=== PATIENT | female | born 1965 | race Caucasian/White ===

== ENCOUNTER → 2020-01-23 | Outpatient (CLI) | payer SELFPAY | LOC: M LABSMTC 18:16 | PROVIDERS: ATTEND Pediatrics | DX: Z11.59 Encounter for screening for other viral diseases (principal) ==

== ENCOUNTER → 2020-03-15 | Outpatient (CLI) | payer SELFPAY | LOC: M LABSMTC 14:00 | PROVIDERS: ATTEND Pediatrics | DX: Z20.822 Contact with and (suspected) exposure to COVID-19 (principal) ==

== ENCOUNTER → 2020-06-26 | Outpatient (REF) | payer OTHER ==
[2020-06-26 12:54] LABS: BASO % 0.6 % (0.0-1.0); HEMATOCRIT 42.9 % (36.0-47.0); HEMOGLOBIN 13.6 g/dl (12.0-15.5); LYMPH # 1.9 10^3/uL (1.5-5.0); LYMPH % 38.4 % (24.0-44.0); MEAN CORPUSCULAR HEMOGLOBIN 29.6 pg (27.0-33.0); MEAN CORPUSCULAR HGB CONC 31.7 g/dl (32.0-36.5); MEAN CORPUSCULAR VOLUME 93.5 fl (80.0-96.0); MONO # 0.4 10^3/uL (0.0-0.8); MONO % 8.4 % (2.0-8.0); NEUTROPHILS # 2.6 10^3/uL (1.5-8.5); NEUTROPHILS % 52.4 % (36.0-66.0); RED BLOOD COUNT 4.59 10^6/uL (4.00-5.40); WHITE BLOOD COUNT 4.9 10^3/uL (4.0-10.0)
[2020-06-26 13:32] LABS: ALBUMIN 3.8 GM/DL (3.2-5.2); ALT/SGPT 15 U/L (12-78); BILIRUBIN,TOTAL 0.4 MG/DL (0.2-1.0); BLOOD UREA NITROGEN 17 MG/DL (7-18); CALCIUM LEVEL 9.7 MG/DL (8.5-10.1); CARBON DIOXIDE LEVEL 30 MEQ/L (21-32); CHLORIDE LEVEL 107 MEQ/L (98-107); CHOLESTEROL LEVEL 246 MG/DL (<200); CHOLESTEROL RISK RATIO 4.472 (<5); CREATININE FOR GFR 0.72 MG/DL (0.55-1.30); FOLATE > 24.0 NG/ML; GLOMERULAR FILTRATION RATE > 60.0 (>51); GLUCOSE, FASTING 85 MG/DL (70-100); HDL CHOLESTEROL 55 MG/DL (>40); IRON (FE) 87 UG/DL (50-170); LDL CHOLESTEROL 155 MG/DL (<100); NON-HDL-C 191 MG/DL; PERCENT SATURATION 33.3 % (13.2-45.0); POTASSIUM SERUM 5.3 MEQ/L (3.5-5.1); SODIUM LEVEL 141 MEQ/L (136-145); THYROID STIMULATING HORMONE 0.645 uIU/ML (0.358-3.740); TOTAL 25(OH) VITAMIN D 27.7 NG/ML (30.0-100.0); TOTAL IRON BINDING CAPACITY 261 UG/DL (250-450); TOTAL PROTEIN 7.6 GM/DL (6.4-8.2); TRIGLYCERIDES LEVEL 181 MG/DL (<150); VITAMIN B12 LEVEL 1001 PG/ML
== END ==
LOC: M LAB REF 12:16
PROVIDERS: ATTEND Pediatrics
DX: Z98.84 Bariatric surgery status (principal); Z13.220 Encounter for screening for lipoid disorders

== ENCOUNTER → 2020-08-16 | Outpatient (CLI) | payer OTHER ==
--- NOTE | 2020-08-16 09:56 | DEXAMM ---
INDICATION: Z13.820 SCREENING FOR OSTEOPOROSIS. COMPARISON: April 12, 2015.. TECHNIQUE: Bone density was measured using dual-energy x-ray absorptionmetry (DEXA). FINDINGS: AP SPINE L1-L4 BMD 1.142 g/cm2 Young Adult T-Score -0.4 Age Matched Z-Score 0.4. LT FEMUR, TOTAL BMD 0.884 g/cm2 Young Adult T-Score -1.0 Age Matched Z-Score -0.3. LT NECK BMD 0.885 g/cm2 Young Adult T-Score -1.1 Age Matched Z-Score -0.1. RT FEMUR, TOTAL BMD 0.875 g/cm2 Young Adult T-Score -1.1 Age Matched Z-Score -0.4. RT NECK BMD 0.882 g/cm2 Young Adult T-Score -1.1 Age Matched Z-Score -0.1. IMPRESSION: There is normal bone density of the spine. There is low bone density of the left hip. There is low bone density of the right hip. The density of the spine has increased 13.9% since the initial exam on April 12, 2015. The density of the left hip has decreased 7.6% since initial exam on April 12, 2015. FOLLOW-UP: Recommendation for the next bone density exam: 2 years. <Electronically signed by Shan Coleman > 08/16/20 [id number]
== END ==
LOC: M WHC 07:18
PROVIDERS: ATTEND Pediatrics
DX: Z12.31 Encounter for screening mammogram for malignant neoplasm of breast (principal); M85.852 Other specified disorders of bone density and structure, left thigh; M85.851 Other specified disorders of bone density and structure, right thigh

== ENCOUNTER → 2020-08-29 | Outpatient (CLI) | payer OTHER ==
--- NOTE | 2020-08-29 15:37 | REP ---
INDICATION: SWELLING, MASS OF CHEST WALL. COMPARISON: None. TECHNIQUE: Ultrasonography over a palpable left chest wall lump was obtained FINDINGS: There are no cystic or solid masses. IMPRESSION: No abnormalities noted. <Electronically signed by Preet Vidal > 08/29/20 [id number]
== END ==
LOC: M RAD 14:53
PROVIDERS: ATTEND Pediatrics
DX: R22.2 Localized swelling, mass and lump, trunk (principal)

== ENCOUNTER → 2020-09-13 | Outpatient (CLI) | payer OTHER ==
--- NOTE | 2020-09-13 09:11 | REPMRS ---
Patient History The patient states she had a clinical breast exam in August 2020. Family history of breast cancer at age 49 in mother, unknown cancer in maternal grandmother. Patient was scheduled for a screening mammo 08/16/20 but found a lump the day before, about 9 o'clock close to sternum on right breast. Rescheduled for today as diagnostic. Had U/S of area 08/29/20 that was negative. Patient no longer feels the lump. Patient signed the MRS sheet 1st covid vaccine beginning of Feb-left arm-Moderna 2nd covid vaccine 03/21/20-left arm Out of state priors in PACS Patient Identification Verified Diagnostic Bilateral Mammo: September 13, 2020 - Exam #: [id number] Bilateral CC and MLO view(s) were taken. Technologist: Audrey Mcleod, Technologist Prior study comparison: November 10, 2018, bilateral digital mammo screening bilat. October 08, 2017, bilateral digital mammo screening bilat. July 08, 2016, bilateral digital mammo screening bilat. FINDINGS: The breast tissue is almost entirely fat. The Vol[employer] volumetric breast density category is: A. There has been no change in the appearance of the mammogram from the prior studies. There is no interval development of dominant mass, architectural distortion, or grouped microcalcification typical of malignancy. 3-D tomosynthesis shows no additional findings. Assessment: BI-RADS/ACR category 1 mammogram. Negative Mammogram. Recommendation Routine screening mammogram of both breasts in 1 year (for women over age 40). This patient's [facility] Lifetime Breast Cancer RIsk is estimated at 17.6 %. This mammogram was interpreted with the aid of an FDA-approved computer-aided dectection system. Electronically Signed By: Shan Coleman MD 09/13/20 [id number]
== END ==
LOC: M WHC 08:09
PROVIDERS: ATTEND Pediatrics
DX: N63.15 Unspecified lump in the right breast, overlapping quadrants (principal); Z80.3 Family history of malignant neoplasm of breast
CPT/HCPCS: 77066; G0279

== ENCOUNTER 2020-11-22 03:52 | Emergency (ER) | payer OTHER ==
[~2020-11-22] VITALS: Ht 170.2 cm; Wt 91.8 kg
[2020-11-22] MEDS ORDERED: ATOR1TAB21 PO (04:05)
--- NOTE | 2020-11-22 07:12 | REPVR ---
PROCEDURE INFORMATION: Exam: CT Abdomen And Pelvis Without Contrast Exam date and time: 11/22/2020 4:39 AM Age: 54 years old Clinical indication: Abdominal pain; Flank; Right; Additional info: Left flank pain TECHNIQUE: Imaging protocol: Computed tomography of the abdomen and pelvis without contrast. Radiation optimization: All CT scans at this facility use at least one of these dose optimization techniques: automated exposure control; mA and/or kV adjustment per patient size (includes targeted exams where dose is matched to clinical indication); or iterative reconstruction. COMPARISON: US Chest echo B 08/29/2020 3:12 PM FINDINGS: Mediastinal space: There is a small sliding hiatal hernia. Liver: Normal. No mass. Gallbladder and bile ducts: The patient is status post cholecystectomy. Pancreas: Normal. No ductal dilation. Spleen: Normal. No splenomegaly. Adrenal glands: Normal. No mass. Kidneys and ureters: There is 5 mm right UVJ obstructing stone with moderate proximal hydronephrosis with perinephric and periureteral edema. There are small right lower renal pole stone measuring 3 mm. Stomach and bowel: The patient is status post gastric sleeve surgery with grossly intact suture line. There is mild sigmoid diverticulosis. Appendix: No evidence of appendicitis. Intraperitoneal space: Unremarkable. No free air. No significant fluid collection. Vasculature: Unremarkable. No abdominal aortic aneurysm. Lymph nodes: Unremarkable. No enlarged lymph nodes. Urinary bladder: Unremarkable as visualized. Reproductive: Unremarkable as visualized. Bones/joints: There is lower lumbar spine facet arthrosis. There is L5 S1 disc degenerative changes. 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 Soft tissues: Unremarkable. IMPRESSION: 1. 5 mm right UVJ obstructing stone with moderate proximal hydronephrosis. 2. Bilateral nephrolithiasis. 3. Mild sigmoid colon diverticulosis. 4. Small sliding hiatal hernia. Electronically signed by: Lalo Dubon On 11/22/2020 07:11:37 AM
[2020-11-22 07:39] LABS: BASO % 0.2 % (0.0-1.0); HEMATOCRIT 43.7 % (36.0-47.0); HEMOGLOBIN 14.4 g/dl (12.0-15.5); LYMPH # 1.5 10^3/uL (1.5-5.0); LYMPH % 18.9 % (24.0-44.0); MEAN CORPUSCULAR HEMOGLOBIN 29.9 pg (27.0-33.0); MEAN CORPUSCULAR VOLUME 90.9 fl (80.0-96.0); MONO # 0.5 10^3/uL (0.0-0.8); MONO % 6.2 % (2.0-8.0); NEUTROPHILS % 74.5 % (36.0-66.0); PLATELET COUNT, AUTOMATED 217 10^3/uL (150-450); RED BLOOD COUNT 4.81 10^6/uL (4.00-5.40)
[2020-11-22 08:00] VITALS: BP 126/84
[2020-11-22] MEDS ORDERED: ONDA4TAB6 PO (08:06)
[2020-11-22] MEDS ORDERED: KETO10TAB PO (08:06)
== END 2020-11-22 08:14 | disposition home or self-care (01) ==
LOC: M ED 03:52
DX: N20.1 Calculus of ureter (principal); Z79.899 Other long term (current) drug therapy; Z87.440 Personal history of urinary (tract) infections

== ENCOUNTER → 2020-11-29 | Outpatient (REF) | payer OTHER ==
[~2020-11-29] MED LIST: ATOR1TAB21 PO; KETO10TAB PO; ONDA4TAB6 PO
== END ==
LOC: M LAB REF 16:26
PROVIDERS: ATTEND Pediatrics
DX: N20.0 Calculus of kidney (principal)

== ENCOUNTER → 2021-04-26 | Outpatient (CLI) | payer OTHER | LOC: M RAD 10:53 | PROVIDERS: ATTEND Nurse Practitioner Women's Health | DX: N20.0 Calculus of kidney (principal) ==

== ENCOUNTER → 2021-12-03 | Outpatient (CLI) | payer OTHER ==
[~2021-12-03] MED LIST changes: +ALLO100T PO; +METF750T36 PO; +PANT40TA29 PO
== END ==
LOC: M LABSMTC 09:11
PROVIDERS: ATTEND Anesthesiology
DX: Z01.812 Encounter for preprocedural laboratory examination (principal); Z11.52 Encounter for screening for COVID-19

== ENCOUNTER 2021-12-08 08:28 | Day surgery (SDC) | payer OTHER ==
[~2021-12-08] VITALS: Ht 170.2 cm; Wt 95.7 kg
[~2021-12-08 08:28] MED LIST changes: +NS 1,000 ML IV ONE
[2021-12-08] MEDS ORDERED: LIDOCAINE 2% 100MG/5ML SDV (FOR ANES.) As Ordered ONE (09:03)
[2021-12-08] MEDS ORDERED: propofoL 200 MG/20 ML VIAL As Ordered ONE (09:03)
[2021-12-08] MEDS ORDERED: fentaNYL 100 MCG/2 ML INJECTION As Ordered ONE (09:04)
[2021-12-08 10:00] VITALS: BP 160/78
== END 2021-12-08 10:09 | disposition home or self-care (01) ==
LOC: M OPP 08:28
PROVIDERS: ATTEND Internal Medicine Gastroenterology
DX: Z86.010 Personal history of colon polyps (principal); K64.0 First degree hemorrhoids; R68.81 Early satiety; Z98.84 Bariatric surgery status; Z79.02 Long term (current) use of antithrombotics/antiplatelets; Z79.1 Long term (current) use of non-steroidal anti-inflammatories (NSAID); Z79.84 Long term (current) use of oral hypoglycemic drugs; Z79.899 Other long term (current) drug therapy; Z88.8 Allergy status to other drugs, medicaments and biological substances; Z91.040 Latex allergy status; Z87.39 Personal history of other diseases of the musculoskeletal system and connective tissue
CPT/HCPCS: 43239; 45378; 88305; J3010

== ENCOUNTER → 2022-02-18 | Outpatient (REF) | payer OTHER ==
[~2022-02-18] MED LIST changes: -NS 1,000 ML IV ONE; +TRUL10IN SC
[2022-02-18 13:26] LABS: HEMOGLOBIN A1c 5.2 % (4.0-6.0)
[2022-02-18 13:36] LABS: URIC ACID 6.1 MG/DL (3.1-7.8)
[2022-02-18 13:39] LABS: BLOOD UREA NITROGEN 14 MG/DL (9-23); CALCIUM LEVEL 9.5 MG/DL (8.5-10.1); CARBON DIOXIDE LEVEL 30 MMOL/L (20-31); CHLORIDE LEVEL 105 MMOL/L (98-107); CHOLESTEROL LEVEL 130 MG/DL (<200); CHOLESTEROL RISK RATIO 2.74 (<5); CREATININE FOR GFR 0.77 MG/DL (0.55-1.30); GLOMERULAR FILTRATION RATE > 60.0 (>51); GLUCOSE, FASTING 84 MG/DL (60-100); HDL CHOLESTEROL 47.4 MG/DL (>40); LDL CHOLESTEROL 64.4 MG/DL (<100); NON-HDL-C 83 MG/DL; POTASSIUM SERUM 5.2 MMOL/L (3.5-5.1); SODIUM LEVEL 143 MMOL/L (136-145); TRIGLYCERIDES LEVEL 91 MG/DL (<150)
== END ==
LOC: M LAB REF 12:37
PROVIDERS: ATTEND Pediatrics
DX: E78.5 Hyperlipidemia, unspecified (principal); R73.03 Prediabetes; E79.0 Hyperuricemia without signs of inflammatory arthritis and tophaceous disease

== ENCOUNTER → 2022-02-27 | Outpatient (CLI) | payer OTHER ==
[2022-02-27 07:47] LABS: BASO % 0.5 % (0.0-1.0); EOS # 0.1 10^3/uL (0.0-0.5); EOS % 1.7 % (0.0-3.0); HEMOGLOBIN 12.9 g/dl (12.0-15.5); LYMPH # 2.4 10^3/uL (1.5-5.0); LYMPH % 40.4 % (24.0-44.0); MEAN CORPUSCULAR HEMOGLOBIN 30.2 pg (27.0-33.0); MEAN CORPUSCULAR HGB CONC 33.1 g/dl (32.0-36.5); MEAN CORPUSCULAR VOLUME 91.3 fl (80.0-96.0); MONO # 0.4 10^3/uL (0.0-0.8); MONO % 7.2 % (2.0-8.0); PLATELET COUNT, AUTOMATED 187 10^3/uL (150-450); RED BLOOD COUNT 4.27 10^6/uL (4.00-5.40)
[2022-02-27 08:07] LABS: ALBUMIN 3.6 G/DL (3.2-5.2); ALKALINE PHOSPHATASE 119 U/L (46-116); ALT/SGPT 12 U/L (7.0-40); AST/SGOT 20 U/L (<34); BILIRUBIN,TOTAL 0.5 MG/DL (0.3-1.2); BLOOD UREA NITROGEN 13 MG/DL (9-23); CALCIUM LEVEL 9.4 MG/DL (8.5-10.1); CARBON DIOXIDE LEVEL 30 MMOL/L (20-31); CHLORIDE LEVEL 107 MMOL/L (98-107); CREATININE FOR GFR 0.73 MG/DL (0.55-1.30); GLOMERULAR FILTRATION RATE > 60.0 (>51); GLUCOSE, FASTING 87 MG/DL (60-100); POTASSIUM SERUM 4.7 MMOL/L (3.5-5.1); SODIUM LEVEL 142 MMOL/L (136-145); TOTAL PROTEIN 6.5 G/DL (5.7-8.2)
== END ==
LOC: M EKG 06:56
PROVIDERS: ATTEND Podiatrist
DX: M20.12 Hallux valgus (acquired), left foot (principal); M79.672 Pain in left foot

== ENCOUNTER → 2022-03-02 | Outpatient (CLI) | payer OTHER | LOC: M LABSMTC 09:14 | PROVIDERS: ATTEND Anesthesiology | DX: Z01.812 Encounter for preprocedural laboratory examination (principal); Z11.52 Encounter for screening for COVID-19 ==

== ENCOUNTER 2022-03-06 07:32 | Day surgery (SDC) | payer OTHER ==
[~2022-03-06] VITALS: Ht 170.2 cm; Wt 93.0 kg
[~2022-03-06 07:32] MED LIST changes: +ceFAZolin SOD 2 GM in IV 1 EA IV ONE
[2022-03-06] MEDS ORDERED: LR 1,000 ML IV SCH (08:00)
[2022-03-06] MEDS ORDERED: MIDAZOLAM INJ 2MG/2ML VIAL As Ordered ONE (08:08)
[2022-03-06] MEDS ORDERED: fentaNYL 100 MCG/2 ML INJECTION As Ordered ONE (08:08)
[2022-03-06] MEDS ORDERED: propofoL 200 MG/20 ML VIAL As Ordered ONE (08:08)
[2022-03-06] MEDS ORDERED: KETOROLAC 60MG 2ML VIAL As Ordered ONE (08:08)
[2022-03-06] MEDS ORDERED: LIDOCAINE 2% 100MG/5ML SDV (FOR ANES.) As Ordered ONE (08:08)
[2022-03-06] MEDS ORDERED: GENTAMICIN SULF 80MG/2ML VIAL As Ordered ONE (09:35)
[2022-03-06] MEDS ORDERED: BUPIVACAINE HCL 0.5% 30ML VIAL As Ordered ONE (09:36)
[2022-03-06] MEDS ORDERED: LIDOCAINE 2% MDV 20ML VIAL As Ordered ONE (09:36)
[2022-03-06] MEDS ORDERED: ONDANSETRON 4MG 2ML VIAL As Ordered ONE (09:52)
[2022-03-06 10:50] VITALS: BP 147/79
== END 2022-03-06 10:55 | disposition home or self-care (01) ==
LOC: M SDC 07:32
PROVIDERS: ATTEND Podiatrist
DX: M20.12 Hallux valgus (acquired), left foot (principal); M21.6X2 Other acquired deformities of left foot; E78.5 Hyperlipidemia, unspecified; R73.03 Prediabetes; K21.9 Gastro-esophageal reflux disease without esophagitis; M1A.0720 Idiopathic chronic gout, left ankle and foot, without tophus (tophi); M1A.0710 Idiopathic chronic gout, right ankle and foot, without tophus (tophi); Z91.040 Latex allergy status; Z88.8 Allergy status to other drugs, medicaments and biological substances; Z79.899 Other long term (current) drug therapy; Z79.84 Long term (current) use of oral hypoglycemic drugs
CPT/HCPCS: 28296; 73630; 88300; C1713; J1100; J2405

== ENCOUNTER → 2022-10-09 | Outpatient (REF) | payer OTHER, BC ==
[~2022-10-09] MED LIST changes: -ceFAZolin SOD 2 GM in IV 1 EA IV ONE
[2022-10-09 18:16] LABS: BASO % 0.6 % (0.0-1.0); EOS % 0.2 % (0.0-3.0); HEMATOCRIT 40.9 % (36.0-47.0); HEMOGLOBIN 13.4 g/dl (12.0-15.5); LYMPH # 2.6 10^3/uL (1.5-5.0); LYMPH % 41.1 % (24.0-44.0); MEAN CORPUSCULAR HEMOGLOBIN 30.2 pg (27.0-33.0); MEAN CORPUSCULAR HGB CONC 32.8 g/dl (32.0-36.5); MEAN CORPUSCULAR VOLUME 92.1 fl (80.0-96.0); MONO # 0.6 10^3/uL (0.0-0.8); MONO % 9.5 % (2.0-8.0); NEUTROPHILS % 48.3 % (36.0-66.0); RED BLOOD COUNT 4.44 10^6/uL (4.00-5.40); WHITE BLOOD COUNT 6.2 10^3/uL (4.0-10.0)
[2022-10-09 18:30] LABS: URIC ACID 5.2 MG/DL (3.1-7.8)
[2022-10-09 18:33] LABS: PERCENT SATURATION 9.3 % (13.2-45.0)
[2022-10-09 18:35] LABS: THYROID STIMULATING HORMONE 0.648 uIU/ML (0.55-4.78)
[2022-10-09 18:36] LABS: FOLATE 18.8 NG/ML (>5.4)
== END ==
LOC: M LAB REF 17:46
PROVIDERS: ATTEND Pediatrics
DX: R73.03 Prediabetes (principal); Z87.39 Personal history of other diseases of the musculoskeletal system and connective tissue; M85.89 Other specified disorders of bone density and structure, multiple sites; Z98.84 Bariatric surgery status

== ENCOUNTER → 2022-10-20 | Outpatient (CLI) | payer BC, SELFPAY | LOC: M WHC 07:16 | PROVIDERS: ATTEND Pediatrics | DX: M81.0 Age-related osteoporosis without current pathological fracture (principal) ==

== ENCOUNTER → 2023-02-01 | Outpatient (REF) | payer BC, OTHER ==
[2023-02-01 18:01] LABS: HEMOGLOBIN A1c 5.6 % (4.0-6.0)
[2023-02-01 18:07] LABS: CHOLESTEROL RISK RATIO 2.48 (<5); HDL CHOLESTEROL 65.3 MG/DL (>40); LDL CHOLESTEROL 82.5 MG/DL (<100); NON-HDL-C 96.7 MG/DL
[2023-02-01 18:09] LABS: FOLLICLE STIMULATING HORMONE 34.7 mIU/ML
[2023-02-01 18:10] LABS: LUTEINIZING HORMONE 10.6 mIU/ML
== END ==
LOC: M LAB REF 16:36
PROVIDERS: ATTEND Pediatrics
DX: R73.03 Prediabetes (principal); R61 Generalized hyperhidrosis; E78.5 Hyperlipidemia, unspecified

== ENCOUNTER → 2023-05-15 | Outpatient (CLI) | payer OTHER ==
[2023-05-15 10:10] LABS: HEMOGLOBIN 13.6 g/dl (12.0-15.5); MEAN CORPUSCULAR HEMOGLOBIN 30.6 pg (27.0-33.0); MEAN CORPUSCULAR HGB CONC 33.2 g/dl (32.0-36.5); MEAN CORPUSCULAR VOLUME 92.3 fl (80.0-96.0); RED BLOOD COUNT 4.44 10^6/uL (4.00-5.40); WHITE BLOOD COUNT 4.7 10^3/uL (4.0-10.0)
[2023-05-15 10:11] LABS: BASO % 0.6 % (0.0-1.0); LYMPH # 1.9 10^3/uL (1.5-5.0); LYMPH % 41.2 % (24.0-44.0); MONO # 0.4 10^3/uL (0.0-0.8); MONO % 8.5 % (2.0-8.0); NEUTROPHILS # 2.3 10^3/uL (1.5-8.5); NEUTROPHILS % 49.5 % (36.0-66.0); PLATELET COUNT, AUTOMATED 155 10^3/uL (150-450)
[2023-05-15 10:27] LABS: IRON (FE) 65 UG/DL (50-170); PERCENT SATURATION 22.2 % (13.2-45.0); TOTAL IRON BINDING CAPACITY 293 UG/DL (250-425)
[2023-05-15 10:28] LABS: ALBUMIN 3.5 G/DL (3.2-5.2); ALKALINE PHOSPHATASE 128 U/L (46-116); ALT/SGPT 17 U/L (7.0-40); AST/SGOT 20 U/L (<34); BILIRUBIN,TOTAL 0.5 MG/DL (0.3-1.2); BLOOD UREA NITROGEN 18 MG/DL (9-23); CALCIUM LEVEL 9.4 MG/DL (8.5-10.1); CARBON DIOXIDE LEVEL 31 MMOL/L (20-31); CHLORIDE LEVEL 108 MMOL/L (98-107); CHOLESTEROL LEVEL 155 MG/DL (<200); CREATININE FOR GFR 0.77 MG/DL (0.55-1.30); GLOMERULAR FILTRATION RATE > 60.0 (>51); GLUCOSE, FASTING 87 MG/DL (60-100); HDL CHOLESTEROL 53.3 MG/DL (>40); LDL CHOLESTEROL 80.9 MG/DL (<100); NON-HDL-C 101.7 MG/DL; SODIUM LEVEL 142 MMOL/L (136-145); TOTAL PROTEIN 6.7 G/DL (5.7-8.2); TRIGLYCERIDES LEVEL 104 MG/DL (<150)
[2023-05-15 10:33] LABS: FERRITIN 60.7 NG/ML (7.3-270.7); FOLATE 21.55 NG/ML (>5.4)
[2023-05-15 10:35] LABS: THYROID STIMULATING HORMONE 0.828 uIU/ML (0.55-4.78); VITAMIN B12 LEVEL 820 PG/ML (211-911)
[2023-05-15 10:36] LABS: FREE T4 1.08 NG/DL (0.89-1.76); TOTAL 25(OH) VITAMIN D 30.6 NG/ML (20.0-100.0)
== END ==
LOC: M LAB 08:44
PROVIDERS: ATTEND Registered Nurse
DX: Z01.812 Encounter for preprocedural laboratory examination (principal); D51.9 Vitamin B12 deficiency anemia, unspecified; Z13.220 Encounter for screening for lipoid disorders; E55.9 Vitamin D deficiency, unspecified; E66.01 Morbid (severe) obesity due to excess calories; E56.9 Vitamin deficiency, unspecified

== ENCOUNTER → 2023-05-15 | Outpatient (CLI) | payer OTHER ==
[2023-05-15 10:24] LABS: URIC ACID 5.9 MG/DL (3.1-7.8)
[2023-05-15 10:27] LABS: ALBUMIN 3.6 G/DL (3.2-5.2); ALKALINE PHOSPHATASE 130 U/L (46-116); ALT/SGPT 14 U/L (7.0-40); AST/SGOT 17 U/L (<34); BILIRUBIN,TOTAL 0.5 MG/DL (0.3-1.2); BLOOD UREA NITROGEN 18 MG/DL (9-23); CARBON DIOXIDE LEVEL 31 MMOL/L (20-31); CHLORIDE LEVEL 107 MMOL/L (98-107); CHOLESTEROL LEVEL 147 MG/DL (<200); CHOLESTEROL RISK RATIO 2.92 (<5); CREATININE FOR GFR 0.79 MG/DL (0.55-1.30); GLOMERULAR FILTRATION RATE > 60.0 (>51); GLUCOSE, FASTING 88 MG/DL (60-100); HDL CHOLESTEROL 50.3 MG/DL (>40); LDL CHOLESTEROL 77.5 MG/DL (<100); NON-HDL-C 96.7 MG/DL; POTASSIUM SERUM 5.2 MMOL/L (3.5-5.1); SODIUM LEVEL 143 MMOL/L (136-145); TOTAL PROTEIN 6.7 G/DL (5.7-8.2); TRIGLYCERIDES LEVEL 96 MG/DL (<150)
[2023-05-15 10:40] LABS: HEMOGLOBIN A1c 5.6 % (4.0-6.0)
== END ==
LOC: M LAB 08:39
PROVIDERS: ATTEND Student in an Organized Health Care Education/Training Program
DX: E78.5 Hyperlipidemia, unspecified (principal); R73.03 Prediabetes; K21.00 Gastro-esophageal reflux disease with esophagitis, without bleeding; M1A.4 Other secondary chronic gout

== ENCOUNTER → 2023-05-21 | Outpatient (CLI) | payer OTHER | LOC: M RAD 16:11 | PROVIDERS: ATTEND Registered Nurse | DX: Z01.810 Encounter for preprocedural cardiovascular examination (principal); E66.01 Morbid (severe) obesity due to excess calories; R94.31 Abnormal electrocardiogram [ECG] [EKG] ==

== ENCOUNTER → 2023-09-16 | Outpatient (CLI) | payer OTHER ==
[~2023-09-16] MED LIST changes: +ONDA-282 PO; -ONDA4TAB6 PO
[2023-09-16 18:32] LABS: POTASSIUM SERUM 4.8 MMOL/L (3.5-5.1)
== END ==
LOC: M PLALAB 15:27
PROVIDERS: ATTEND Student in an Organized Health Care Education/Training Program
DX: E87.5 Hyperkalemia (principal); R74.8 Abnormal levels of other serum enzymes

== ENCOUNTER → 2023-09-29 | Outpatient (REF) | payer OTHER | LOC: M LAB REF 16:20 | PROVIDERS: ATTEND Physician Assistant | DX: J02.9 Acute pharyngitis, unspecified (principal) ==

== ENCOUNTER → 2024-01-08 | Outpatient (CLI) | payer OTHER ==
[2024-01-08 10:26] LABS: HEMOGLOBIN A1c 5.3 % (4.0-6.0)
[2024-01-08 10:42] LABS: BLOOD UREA NITROGEN 17 MG/DL (9-23); CALCIUM LEVEL 9.1 MG/DL (8.5-10.1); CARBON DIOXIDE LEVEL 30 MMOL/L (20-31); CHLORIDE LEVEL 107 MMOL/L (98-107); CREATININE FOR GFR 0.64 MG/DL (0.55-1.30); GLOMERULAR FILTRATION RATE > 60.0 (>51); GLUCOSE, FASTING 83 MG/DL (60-100); POTASSIUM SERUM 4.1 MMOL/L (3.5-5.1); SODIUM LEVEL 144 MMOL/L (136-145)
[2024-01-08 10:53] LABS: CREATININE, URINE 192.2 MG/DL; MAU/CREAT RATIO 3.1 MCG/MG (0.0-30.0)
== END ==
LOC: M LAB 08:04
PROVIDERS: ATTEND Student in an Organized Health Care Education/Training Program
DX: R73.03 Prediabetes (principal); R74.8 Abnormal levels of other serum enzymes

== ENCOUNTER → 2024-01-08 | Outpatient (CLI) | payer OTHER ==
[2024-01-08 10:12] LABS: BASO % 0.8 % (0.0-1.0); EOS # 0.1 10^3/uL (0.0-0.5); EOS % 2.3 % (0.0-3.0); HEMATOCRIT 39.7 % (36.0-47.0); HEMOGLOBIN 12.8 g/dl (12.0-15.5); LYMPH # 1.7 10^3/uL (1.5-5.0); LYMPH % 35.3 % (24.0-44.0); MEAN CORPUSCULAR HEMOGLOBIN 29.9 pg (27.0-33.0); MEAN CORPUSCULAR HGB CONC 32.2 g/dl (32.0-36.5); MEAN CORPUSCULAR VOLUME 92.8 fl (80.0-96.0); MONO # 0.4 10^3/uL (0.0-0.8); MONO % 8.9 % (2.0-8.0); NEUTROPHILS # 2.5 10^3/uL (1.5-8.5); NEUTROPHILS % 52.5 % (36.0-66.0); RED BLOOD COUNT 4.28 10^6/uL (4.00-5.40); WHITE BLOOD COUNT 4.8 10^3/uL (4.0-10.0)
[2024-01-08 10:43] LABS: ALBUMIN 3.7 G/DL (3.2-5.2); ALKALINE PHOSPHATASE 170 U/L (35-104); ALT/SGPT 19 U/L (7.0-40); AST/SGOT 17 U/L (<34); BILIRUBIN,TOTAL 0.4 MG/DL (0.3-1.2); BLOOD UREA NITROGEN 16 MG/DL (9-23); CALCIUM LEVEL 9.5 MG/DL (8.5-10.1); CARBON DIOXIDE LEVEL 31 MMOL/L (20-31); CHLORIDE LEVEL 108 MMOL/L (98-107); CREATININE FOR GFR 0.62 MG/DL (0.55-1.30); GLOMERULAR FILTRATION RATE > 60.0 (>51); GLUCOSE, FASTING 86 MG/DL (60-100); IRON (FE) 54 UG/DL (50-170); POTASSIUM SERUM 4.4 MMOL/L (3.5-5.1); SODIUM LEVEL 145 MMOL/L (136-145); TOTAL PROTEIN 7.1 G/DL (5.7-8.2)
[2024-01-08 10:46] LABS: FERRITIN 79.7 NG/ML (7.3-270.7)
[2024-01-08 10:47] LABS: THYROID STIMULATING HORMONE 0.507 uIU/ML (0.55-4.78); VITAMIN B12 LEVEL 1397 PG/ML (211-911)
[2024-01-08 10:48] LABS: TOTAL 25(OH) VITAMIN D 43.6 NG/ML (20.0-100.0)
== END ==
LOC: M LAB 08:06
PROVIDERS: ATTEND Registered Nurse
DX: Z00.00 Encounter for general adult medical examination without abnormal findings (principal); E66.9 Obesity, unspecified; R68.89 Other general symptoms and signs; E53.9 Vitamin B deficiency, unspecified; E55.9 Vitamin D deficiency, unspecified

== ENCOUNTER → 2024-11-06 | Outpatient (REF) | payer OTHER ==
[2024-11-06 16:45] LABS: ALT/SGPT 33 U/L (7.0-40); AST/SGOT 31 U/L (<34); CALCIUM LEVEL 8.9 MG/DL (8.5-10.1); CARBON DIOXIDE LEVEL 29 MMOL/L (20-31); CHLORIDE LEVEL 105 MMOL/L (98-107); CHOLESTEROL LEVEL 132 MG/DL (<200); CHOLESTEROL RISK RATIO 3.04 (<5); CREATININE FOR GFR 0.66 MG/DL (0.55-1.30); GLOMERULAR FILTRATION RATE > 90.0 (>51); LDL CHOLESTEROL 70.7 MG/DL (<100); NON-HDL-C 88.7 MG/DL; POTASSIUM SERUM 5.1 MMOL/L (3.5-5.1); SODIUM LEVEL 140 MMOL/L (136-145); TRIGLYCERIDES LEVEL 90 MG/DL (<150)
[2024-11-06 17:07] LABS: ESTIMATED AVERAGE GLUCOSE 105.0 MG/DL (60-110)
== END ==
LOC: M LAB REF 16:12
PROVIDERS: ATTEND Pediatrics
DX: R73.03 Prediabetes (principal); E79.0 Hyperuricemia without signs of inflammatory arthritis and tophaceous disease; E78.5 Hyperlipidemia, unspecified

== ENCOUNTER → 2024-11-26 | Outpatient (REF) | payer OTHER | LOC: M LAB REF 17:46 | PROVIDERS: ATTEND Physician Assistant | DX: R30.0 Dysuria (principal) ==

== ENCOUNTER → 2024-12-06 | Outpatient (REF) | payer OTHER | LOC: M LAB REF 12:18 | PROVIDERS: ATTEND Student in an Organized Health Care Education/Training Program | DX: R30.0 Dysuria (principal) ==

== ENCOUNTER → 2024-12-13 | Outpatient (REF) | payer OTHER | LOC: M LAB REF 12:06 | PROVIDERS: ATTEND Pediatrics | DX: R10.20 Pelvic and perineal pain unspecified side (principal); N39.0 Urinary tract infection, site not specified; R82.90 Unspecified abnormal findings in urine ==

== ENCOUNTER → 2024-12-14 | Outpatient (CLI) | payer OTHER | LOC: M WUC 08:05 | PROVIDERS: ATTEND Pediatrics | DX: R10.20 Pelvic and perineal pain unspecified side (principal) ==

== ENCOUNTER → 2024-12-27 | Outpatient (REF) | payer OTHER | LOC: M LAB REF 17:59 | PROVIDERS: ATTEND Pediatrics | DX: E79.0 Hyperuricemia without signs of inflammatory arthritis and tophaceous disease (principal); R74.8 Abnormal levels of other serum enzymes ==

== ENCOUNTER → 2025-01-26 | Outpatient (REF) | payer OTHER ==
[2025-01-26 17:13] LABS: CALCIUM LEVEL 9.5 MG/DL (8.3-10.6); PHOSPHORUS LEVEL 4.1 MG/DL (2.4-5.1); PTH INTACT 76.4 PG/ML (18.5-88.0)
[2025-01-26 17:16] LABS: TOTAL 25(OH) VITAMIN D 66.3 NG/ML (20.0-100.0)
[2025-01-30 18:41] LABS: ALKALINE PHOSPHATASE ISO-MACR0 0 % (<=0); ALKALINE PHOSPHATASE ISO-PLAC 0 % (<=0); Alkaline Phosphatase Iso-Bone 43 % (28-66); Alkaline Phosphatase Iso-Intes 4 % (1-24); Alkaline Phosphatase Iso-Liver 53 % (25-69); TOTAL ALK PHOS 112 U/L (37-153)
== END ==
LOC: M LAB REF 16:26
PROVIDERS: ATTEND Pediatrics
DX: R74.8 Abnormal levels of other serum enzymes (principal)